=== PATIENT | male | born 2000 | race Caucasian/White ===

== ENCOUNTER 2025-01-27 17:33 | Emergency (ER) | payer OTHER, SELFPAY ==
[2025-01-27 17:41] VITALS: BP 169/86; PULSE 80; RESP 16; TEMP 36.5; O2SAT 98; BMI 25.1
--- NOTE | 2025-01-27 18:18 | ED_ITS ---
<Statement entered by Maurice Cummings DO - 01/27/25 20:17> Dr. Cummings: I was immediately available in the department for consultation. I did not actually see the patient. HPI - Wound/Laceration General Chief Complaint: Wound/Laceration Stated Complaint: cut left thumb Time Seen by Provider: 01/27/25 17:47 Source: patient Mode of arrival: Ambulatory History of Present Illness HPI narrative: Mr. Maciel is a very pleasant 24-year-old male with a past medical history of fatty liver disease who presents to the emergency department for left thumb laceration that occurred prior to arrival. Patient was working on his bike when a piece of the bike cut a chunk out of the pad of his left thumb. Bleeding is controlled with direct pressure. He believes his last Tdap was in 2016. No blood thinner use. No issues with range of motion of the left thumb. Related Data Previous Rx's ?Medication ?Instructions ?Recorded cephalexin 500 mg capsule 500 mg PO TID 5 days #15 cap s 01/27/25 Allergies Allergy/AdvReac Type Severity Reaction Status Date / Time No Known Drug Allergies Allergy Verified 01/27/25 17:42 Review of Systems Review of Systems ROS Unobtainable: All systems reviewed & are unremarkable except as noted in HPI and below Patient History tobacco type: smokeless tobacco Exam Narrative Exam Narrative: GENERAL: 24 year old patient appears stated age. Well-developed patient, in no acute distress. HEAD: Atraumatic. Normocephalic. NECK: Trachea midline. Cervical ROM intact. CARDIOVASCULAR: Regular rate RESPIRATORY: ?Nonlabored respirations. ?Speaking in clear, full sentences. EXTREMITIES: Left thumb with avulsion laceration of the pad approximately 1 cm x 1 cm. Bleeding controlled with direct pressure. Patient has isolated flexion and extension intact at the D IP. Brisk capillary refill distal to the wound and sensation intact to light touch distal to the wound. NEURO: AOx3. ?Clear speech. ?Moves all 4 extremities appropriately. SKIN: No rash or erythema of visible areas. Left thumb pad lac described above. Initial Vital Signs Initial Vital Signs: Vital Signs Temperature 97.7 F 01/27/25 17:41 Pulse Rate 80 01/27/25 17:41 Respiratory Rate 16 01/27/25 17:41 Blood Pressure 169/86 H 01/27/25 17:41 Pulse Oximetry 98 01/27/25 17:41 Oxygen Delivery Method Room Air 01/27/25 17:41 Procedures Laceration Repair Laceration 1: Site: hand (thumb) Side (If applicable): left Size (cm): 1 Description: irregular Depth: simple, single layer Local Anesthetic: lidocaine 1% Amount of anesthesia used (mL): 2 Pre-repair: wound explored, irrigated extensively (Cleansed with a Betadine) and deep structures intact Skin layer closed with: nylon Skin layer suture size: 5-0 Number of sutures: 2 Technique: simple, interrupted and horizontal mattress Course Orders Ordered: Discontinued Medications Bacitracin (Bacitracin Oint 0.9 Gm Pckt) 1 applic TOP NOW ONE Stop: 01/27/25 19:02 Last Admin: 01/27/25 19:08 Dose: 1 applic Cephalexin HCl (Cephalexin 250 Mg Capsule) 500 mg PO NOW ONE Stop: 01/27/25 18:33 Last Admin: 01/27/25 18:45 Dose: 500 mg Documented By: Diphtheria/Tetanus/Acell Pertussis (Tet,Diph,Pertuss(Acell),Vac/Pf 0.5 Ml Syringe) 0.5 ml IM .ONCE ONE Stop: 01/27/25 18:33 Last Admin: 01/27/25 18:45 Dose: 0.5 ml Documented By: Vital Signs Vital signs: Vital Signs - 8 hr 01/27/25 17:41 01/27/25 19:15 Temperature 97.7 F Pulse Rate 80 71 Respiratory Rate 16 16 Blood Pressure 169/86 H 138/73 Pulse Oximetry 98 100 Oxygen Delivery Method Room Air Room Air MDM - Wound/Laceration MDM Narrative Medical decision making narrative: 24-year-old male with a past medical history of fatty liver disease who presents to the emergency department for left thumb laceration that occurred prior to arrival. Differential diagnosis includes but isn't limited to avulsion, laceration, etc. On exam patient in no acute distress, nontoxic-appearing, all vitals within normal limits. Left thumb has a chunk/avulsion out of the pad, about 1 x 1 cm. Bleeding controlled with direct pressure. We will update his Tdap and repair wound. Wound was anesthetized, cleansed extensively and irrigated. On horizontal mattress suture and 1 simple interrupted suture was used to help bring wound edges closer together however it will need to heal from the bottom up. Bacitracin and nonadherent dressing applied. First dose of Keflex given, 5 day course sent for wound infection prevention. Discussed proper wound care, signs symptoms of infection, suture removal in 10-14 days, discussed expected course of healing. Patient verbalized understanding of all information agreeable with the plan. He is stable for discharge home. Discharge Plan Departure Patient Disposition: Home Clinical Impression: Avulsion of skin of left thumb Qualifiers: Encounter type: initial encounter Qualified Code(s): S61.002A - Unspecified open wound of left thumb without damage to nail, initial encounter Instructions: DI for Laceration Repair Activity Restrictions/Additional Instructions: Dear Mr. Maciel, Thank you for coming to the emergency department. Today you sustained an avulsion laceration to your left thumb, where a chunk of skin was actually removed. Two sutures were used to pull the skin closer together (1 horizontal mattress suture and 1 simple interrupted suture) however the skin we will need to heal from the bottom up as this is still an open wound. Today you had a laceration to your left thumb. We have placed 2 sutures. They need to be removed in 10-14 days. You may do this in your doctor's office, the [id number], or here if necessary. Please keep the dressing on your wound clean, dry, and intact for the next 24 hours. After this time, you may remove the dressing and gently clean the wound with soap and water, then pat dry. Keep the wound clean and covered with ointment and a dressing. Avoid soaking the wound in any water such as a bath, pool, or the ocean. If you develop any signs of wound infection such as increased redness, pus drainage, streaking redness, or fevers, please return to the ER immediately for evaluation. Once sutures are removed and the wound has healed, apply sunscreen daily to reduce the appearance of scars. We updated your tetanus shot today. You have been prescribed a short course of antibiotics to help prevent wound infection, please complete the full course. Your prescription has been sent to [facility] in [place]. Please follow up with your primary care doctor within the next 2-3 days for ER follow-up. (If you do not have a PCP you can call [phone]. ?to schedule an appointment with an [facility] Primary Care Provider) IF YOU DEVELOP ANY NEW OR WORSENING SYMPTOMS, RETURN TO THE ER! Please read the attached instructions, they highlight more specific treatments and interventions for you at home. Thank you for letting me participate in your care, Liberty Blackman PA-C Prescriptions: New cephalexin 500 mg capsule 500 mg PO TID 5 Days Qty: 15 0RF Stand Alone Forms: Patient Portal/API
[2025-01-27] MEDS: TET,DIPH,PERTUSS(ACELL),VAC/PF 0.5 ML SYRINGE IM (18:45)
[2025-01-27] MEDS: BACITRACIN OINT 0.9 GM PCKT 1 APPLIC TOP (19:08)
[2025-01-27 19:15] VITALS: BP 138/73; PULSE 71; RESP 16; O2SAT 100
== END 2025-01-27 19:15 | disposition home or self-care (01) ==
PROVIDERS: Emergency Provider Physician Assistant
DX: S61.012A Laceration without foreign body of left thumb without damage to nail, initial encounter (principal); W26.9XXA Contact with unspecified sharp object(s), initial encounter; Z23 Encounter for immunization
CPT/HCPCS: 12001; 90471; 99283; 90715

== ENCOUNTER 2025-02-09 11:33 | Emergency (ER) | payer OTHER, SELFPAY ==
[2025-02-09 11:45] VITALS: BP 142/89; PULSE 73; RESP 16; TEMP 36.4; O2SAT 99; BMI 25.1
--- NOTE | 2025-02-09 11:54 | ED.UPPEXIN ---
HPI - Extremity Injury (Upper) <Therese Greene PA-C - Last Filed: 02/09/25 12:06> General Chief Complaint: Recheck/Abnormal Lab/Rx Stated Complaint: Needs stitches out Time Seen by Provider: 02/09/25 11:45 Source: patient Mode of arrival: Family Vehicle History of Present Illness HPI narrative: This is a 24-year-old male presenting with concern for wanting sutures removed from his left thumb. He has no other complaints or concerns today. He originally injured himself while working on a bicycle and the pad of his thumb got caught causing a laceration and also the removal of outer layer of the skin of his thumb. His sutures were placed at this facility 13 days ago. He states he took the antibiotic medication as prophylaxis for infection as prescribed and has not had any increased pain abnormal drainage discoloration or heat he feels the area is healing well. He has been wearing a Band-Aid for protection. Related Data Allergies Allergy/AdvReac Type Severity Reaction Status Date / Time No Known Drug Allergies Allergy Verified 02/09/25 11:49 Review of Systems <Therese Greene PA-C - Last Filed: 02/09/25 12:06> Review of Systems Narrative: See HPI Patient History <SRINIVAS Cohen Last Filed: 02/09/25 12:06> tobacco type: smokeless tobacco Exam <Therese Greene PA-C - Last Filed: 02/09/25 12:06> Narrative Exam Narrative: GENERAL: [24] year old patient appears stated age. Well-developed patient, in mild distress. HEAD: Atraumatic. Normocephalic. EYES: Pupils equal round and reactive. Extraocular motions intact. No scleral icterus. No injection or drainage. ENT: Nose without bleeding, purulent drainage. Airway patent. NECK: Trachea midline. Non tender RESPIRATORY: No increased work of breathing or respiratory distress EXTREMITIES: Moving all extremities, normal gait. The affected left thumb has an avulsed superficial area that is well healing on the pad of the thumb there is a central distal to proximal line consistent with laceration that is healing well. There are [address] One simple interrupted and 1 mattress suture. The area is nontender and well perfused with no evidence of infection. Cap refill is less than 2 seconds NEURO: AOx3. SKIN: See extremities. No rash or erythema of visible areas Initial Vital Signs Initial Vital Signs: Vital Signs Temperature 97.5 F L 02/09/25 11:45 Pulse Rate 73 02/09/25 11:45 Respiratory Rate 16 02/09/25 11:45 Blood Pressure 142/89 H 02/09/25 11:45 Pulse Oximetry 99 02/09/25 11:45 Oxygen Delivery Method Room Air 02/09/25 11:45 <Terry Fink MD - Last Filed: 02/10/25 15:06> Initial Vital Signs Initial Vital Signs: Vital Signs Temperature 97.5 F L 02/09/25 11:45 Pulse Rate 73 02/09/25 11:45 Respiratory Rate 16 02/09/25 11:45 Blood Pressure 142/89 H 02/09/25 11:45 Pulse Oximetry 99 02/09/25 11:45 Oxygen Delivery Method Room Air 02/09/25 11:45 Procedures <Therese Greene PA-C - Last Filed: 02/09/25 12:06> [facility] [place] Procedure Name of Procedure: Suture removal Location: Left thumb Technique/Description of procedure performed: 1 simple interrupted and 1 mattress suture were removed successfully by provider after cleansing the area with chlorhexidine swab. Sutures were removed completely patient tolerated the procedure well. Patient tolerated procedure: Well Complications: none Course <Therese Greene PA-C - Last Filed: 02/09/25 12:06> Vital Signs Vital signs: Vital Signs - 8 hr 02/09/25 11:45 Temperature 97.5 F L Pulse Rate 73 Respiratory Rate 16 Blood Pressure 142/89 H Pulse Oximetry 99 Oxygen Delivery Method Room Air <Terry Fink MD - Last Filed: 02/10/25 15:06> Vital Signs Vital signs: Vital Signs - 8 hr 02/09/25 11:45 Temperature 97.5 F L Pulse Rate 73 Respiratory Rate 16 Blood Pressure 142/89 H Pulse Oximetry 99 Oxygen Delivery Method Room Air MDM - Extremity Injury (Upper) <Therese Greene PA-C - Last Filed: 02/09/25 12:06> Differential Diagnosis Differential diagnosis: Likely other (Laceration/avulsion of thumb; suture removal) MDM Narrative Medical decision making narrative: Reviewed this patient's chart specifically his recent visit on 01/27/2025 for laceration avulsion of the left thumb at which time he had 2 sutures placed. Patient presented today for removal of the sutures. Did take the antibiotics he was prescribed. The area is healing very well. Two sutures were removed as above in procedures completely and without difficulty. Patient was advised to continue wearing a Band-Aid for protection until the area is fully healed. Monitor for infection however this is extremely unlikely at this stage. Return precautions provided, follow-up plan discussed, all questions answered. Discharge Plan Departure Patient Disposition: Home Clinical Impression: Encounter for removal of sutures Avulsion of skin of left thumb Qualifiers: Encounter type: subsequent encounter Qualified Code(s): S61.002D - Unspecified open wound of left thumb without damage to nail, subsequent encounter Activity Restrictions/Additional Instructions: *You have been diagnosed with [encounter for suture removal] *What to do: *Please continue to take your regular medications as directed. [ ] New medication prescriptions sent to your pharmacy: [ ] [ ] New medication written as a paper prescription [X ] No new medications given *Please follow up with your primary care provider in 2-3 days, call for an appointment. Let them know you were seen in the Emergency Department and that we ask that you be seen in follow up. We will electronically transmit a record of today's note if your PCP is in our system. You came in today with concern for needing to have sutures removed that were placed in this ER on January 27. Your wound looks like it was healing very well. Sutures (2) were removed successfully and completely. You can continue to monitor for signs of infection and wear a Band-Aid for protection until this fully healed. *If you do not have a primary care provider please contact the [facility] Resource line at [phone]. They will ask some questions about your medical history and help get you set up with a doctor in the community. *Return to Emergency Department if you should have any new, worsening or concerning symptoms, such as [fever greater than 101 F, shaking chills, worsening pain, persistent vomiting or other bothersome symptoms] Stand Alone Forms: Patient Portal/API, Work Release Note ED Sign-out <Terry Fink MD - Last Filed: 02/10/25 15:06> Cosign ED Attending Lilliam Attestation: I was readily available for consultation at all times. I agree with assessment and plan of care
== END 2025-02-09 12:08 | disposition home or self-care (01) ==
PROVIDERS: Emergency Provider Student in an Organized Health Care Education/Training Program
CPT/HCPCS: 99281